=== PATIENT | female | born 1965 | race Caucasian/White ===

== ENCOUNTER → 2016-09-07 | Outpatient (CLI) | payer OTHER ==
[~2016-09-07] MED LIST: CALC500T17 PO; NALT1TAB3 PO; OXYC1TAB63 PO; PROT40TA PO; TRAM50TA PO; TRAZ100 PO; TRAZ100T4 PO; VITA100064 PO
[2016-09-07 13:05] LABS: AUTOMATED NEUTROPHIL # 2.7 TH/MM3 (1.8-7.7); BASOPHIL % 0.8 % (0.0-2.0); EOSINOPHIL # 0.2 TH/MM3 (0-0.4); HEMATOCRIT 39.1 % (35.0-46.0); HEMO FLAGS DIFF FINAL; LYMPH % 33.7 % (9.0-44.0); LYMPHOCYTE # 1.7 TH/MM3 (1.0-4.8); MEAN CELL VOLUME 93.3 FL (80.0-100.0); MEAN CORPUSCULAR HEMOGLOBIN 30.8 PG (27.0-34.0); NEUT % 54.5 % (16.0-70.0); PLATELET COUNT 183 TH/MM3 (150-450); RED BLOOD COUNT 4.19 MIL/MM3 (4.00-5.30); RED CELL DISTRIBUTION WIDTH 12.7 % (11.6-17.2); WHITE BLOOD COUNT 4.9 TH/MM3 (4.0-11.0)
[2016-09-07 13:18] LABS: APTT (PATIENT) 27.3 SEC (24.3-30.1); PROTHROMBIN TIME - PATIENT 10.5 SEC (9.8-11.6)
[2016-09-07 13:41] LABS: ALKALINE PHOSPHATASE 84 U/L (45-117); ALT (GPT) 19 U/L (10-53); ANION GAP 6 MEQ/L (5-15); AST (GOT) 12 U/L (15-37); BICARBONATE 30.6 MEQ/L (21.0-32.0); BLOOD UREA NITROGEN 14 MG/DL (7-18); CHLORIDE 104 MEQ/L (98-107); GLOMERULAR FILTRATION RATE 68 ML/MIN (>89); GLUCOSE,FASTING 80 MG/DL (74-99); POTASSIUM 3.8 MEQ/L (3.5-5.1); SODIUM (NA) 141 MEQ/L (136-145); TOTAL BILIRUBIN ADULT 0.5 MG/DL (0.2-1.0)
--- NOTE | 2016-09-08 13:40 | EKG ---
Date Performed: 09/07/2016 Time Performed: 12:39:27 PTAGE: 51 years EKG: Sinus rhythm POSSIBLE INFERIOR MYOCARDIAL INFARCTION, PROBABLY OLD BORDERLINE ECG Compared to prior tracing no si gnificant change PREVIOUS TRACING : 03/10/2015 11.00 DOCTOR: Rishabh Meyer Interpretating Date/Time 09/08/2016 13:36:24
== END ==
LOC: CPRE 12:00
PROVIDERS: ATTEND Orthopaedic Surgery
DX: Z01.812 Encounter for preprocedural laboratory examination (principal); Z01.810 Encounter for preprocedural cardiovascular examination; M75.41 Impingement syndrome of right shoulder; M75.121 Complete rotator cuff tear or rupture of right shoulder, not specified as traumatic; R94.31 Abnormal electrocardiogram [ECG] [EKG]
CPT/HCPCS: 36415; 80053; 85025; 85610; 85730; 93005

== ENCOUNTER → 2016-09-19 | Day surgery (SDC) | payer OTHER ==
[~2016-09-19] VITALS: Ht 157.5 cm; Wt 93.0 kg
[~2016-09-19] MED LIST changes: +ACETAMINOPHEN/HYDROcodone 325 MG/5 MG TAB PO PRN; +BUPIVACAINE HCL PF 0.5% 30 ML VIAL NERV BLOCK ONE; +CHLORHEXIDINE GLUCONATE 2 % 1 PACK (2 CLOTHS) TOPICAL PRN; +DEXAMETHASONE SOD PHOS 4 MG/ML VIAL ONE; +EPINEPHrine HCL (1:1000) 30 MG/30 ML VIAL ONE; +EPINEPHrine HCL (1:1000) 30 MG/30 ML VIAL OTHER ONE; +FAMOTIDINE 20 MG/2 ML VIAL ONE; +INSULIN HUMAN REGULAR 1,000 UNITS/10 ML VIAL SQ PRN; +LACTATED RINGER'S 1000 ML INJ 0 ML IV ONE; +LACTATED RINGER'S 1000 ML IV PRN; +MEPERIDINE HCL 50 MG/ML VIAL ONE; +METOPROLOL TARTRATE 25 MG TAB PO PRN; +MIDAZOLAM HCL 2 MG/2 ML VIAL ONE; +MORPHINE SULFATE 4 MG/ML INJ IV PUSH PRN; +NEOSTIGMINE 3 MG/3 ML SYR IV ONE; +ONDANSETRON HCL 4 MG/2 ML VIAL IV PRN; +ONDANSETRON HCL 4 MG/2 ML VIAL IV PUSH ONE; +POVIDONE IODINE 5% (ANTISEPSIS KIT) 4 APPLICATIONS EACH NARE PRN; +POVIDONE IODINE 7.5% SCRUB 118 ML BOTTLE TOPICAL SCH; +PROPOFOL 200 MG/20 ML AMP IV ONE; -PROT40TA PO; +SODIUM CHLOR 0.9% 1000 ML INJ 1,000 ML IV SCH; +SODIUM CHLORID 0.9% 500 ML IV PRN; +SODIUM CHLORIDE 0.9% FLUSH 5 ML FLUSH IVF PRN; +SODIUM CHLORIDE 0.9% FLUSH 5 ML FLUSH IVF SCH; -TRAZ100 PO; +VANCOMYCIN 1250 MG/NS 250 ML (for 70-84 kg) IV SCH; +ceFAZolin 2 GM PREMIX 50 ML IV SCH; +fentaNYL CITRATE 250 MCG/5 ML AMP ONE
[2016-09-19 06:20] VITALS: BP 139/77; PULSE 77; RESP 20; TEMP 98.5; O2SAT 97
--- NOTE | 2016-09-19 10:36 | MP ---
cc: MARIAMA WILLARD DATE OF SURGERY: 09/19/2016 PREOPERATIVE DIAGNOSIS 1. Rotator cuff tear, right shoulder. 2. Biceps tendinopathy. POSTOPERATIVE DIAGNOSIS 1. Rotator cuff tear, right shoulder. 2. Biceps tendinopathy. OPERATIVE PROCEDURE 1. Arthroscopic rotator cuff repair, right shoulder 2. Major debridement right shoulder joint including biceps tenoptomy 3. modified filemon procedure 9 coplaning lateral end clavicle SURGEON Dr. Willard. ANESTHESIA General. TECHNIQUE After induction of general anesthesia the patient was placed in right lateral position, supported with Biomet hip positioners. Plenty of padding was placed on the posts of the Biomet positioners so we could tilt her backwards about 15-20 degrees. Bony prominences of the lower extremities well protected, well arm well protected, axillary roll was placed. Right arm was placed in traction with 10 pound weight initially and then 15 pounds during the procedure with Accuflex arm positioner with the shoulder in about 30-degrees of abduction. Right shoulder girdle was thoroughly prepped with alcohol and ChloraPrep and draped in routine fashion including Ioban drape on the traction apparatus. Bony prominences were marked and a stab incision was made to introduce the scope through the posterior soft spot. The first try was unsuccessful. Therefore, because of her obesity, the more posterior medial stab incision made. We are now able to enter the joint, visualize the joint. The head of the humerus was good. The glenoid was good. There was quite a bit of synovitis in the joint. The supraspinatus tear was noted. The biceps tendon has quite a bit of tearing near its attachment. A 18 gauge needle was placed and anterior portal established, followed by biceps tenotomy. I did not feel the need for tenodesis in her situation. The subacromial space was entered, acromioplasty and modified Filemon procedure was done coplaning the lateral end of the clavicle, coracoacromial ligament was recessed from the bone. There was severe bursitis and debridement was carried out. The rotator cuff tear was far lateral with no residual rotator cuff on the bone. The bone was debrided gently with a bur followed by introduction of a 5 mm anchor. Two mattress sutures were placed getting good fixation. These were tied and a [id number] second row was established with the swivel lock anchor. The patient's humerus is quite small and there is really no room for a second anchor but even the posterior part of the supraspinatus overlaps the bone. I thought it would be risky and foolish to try to put another anchor. Instrumentation was withdrawn and the patient was placed in a sling and abduction. The wounds were closed with interrupted 3-0 Nylon mattress sutures. Dressing was applied with Xeroform, 4x4s, ABD and Medipore tape. The patient tolerated the procedure well. TRANSFUSIONS AND COMPLICATIONS None. POSTOPERATIVE CONDITION Satisfactory. PROGNOSIS Guarded to good. MD CARLOS Silva/ART /10:02 AM /10:11 AM [email or web address]
[2016-09-19 12:18] VITALS: BP 118/63; PULSE 90; RESP 18; TEMP 97.6; O2SAT 95
== END | disposition home or self-care (01) ==
LOC: HSDC 05:22
PROVIDERS: ATTEND Orthopaedic Surgery
DX: M75.101 Unspecified rotator cuff tear or rupture of right shoulder, not specified as traumatic (principal); M75.41 Impingement syndrome of right shoulder; F17.200 Nicotine dependence, unspecified, uncomplicated
CPT/HCPCS: 01630; 29826; 29827; C1713; J0171; J0690; J1100; J2175; J2250; J2405; J2710; J3010; J3370; J7050; J7120